=== PATIENT | male | born 1995 | race Caucasian/White ===

== ENCOUNTER 2017-02-27 10:56 | Emergency (ER) | payer OTHER ==
[2017-02-27] MEDS ORDERED: IOPAMIDOL 300 (61%) 100 ML VIAL IV ONE (10:57)
[2017-02-27 11:23] LABS: PH,URINE 6.5 (5.0-8.0); SPECIFIC GRAVITY 1.015 (1.001-1.030); URINE BILIRUBIN NEGATIVE (NEGATIVE); URINE BLOOD NEGATIVE (NEGATIVE); URINE GLUCOSE (UA) NEGATIVE (NEGATIVE); URINE LEUKOCYTE ESTERASE NEGATIVE (NEGATIVE); URINE NITRITE NEGATIVE (NEGATIVE); URINE PROTEIN TRACE (NEGATIVE); URINE UROBILINOGEN 1 mg/dL (0-1 mg/dl)
[2017-02-27 11:25] LABS: URINE APPEARANCE CLEAR; URINE COLOR YELLOW
[2017-02-27 11:31] LABS: ABSOLUTE NEUTROPHIL COUNT 6.1 K/mm3 (1.8-7.7); BASO # 0.1 K/mm3 (0.0-0.2); BASO % 0.6 % (0.2-1.0); EOS # 0.7 (0.0-0.5); EOS % 7.5 % (0.9-2.9); HEMOGLOBIN 16.2 gm/l (14.0-18.0); IMM NEUT # 0.1 K/mm3 (0-0.2); IMM NEUT% 0.5 % (0-1); LYMPH # 2.1 (1.0-4.8); LYMPH % 21.6 % (15-45); MEAN CELL VOLUME 85.3 fl (80.0-94.0); MEAN CORPUSCULAR HEMOGLOBIN 28.8 pg (27.0-31.0); MEAN CORPUSCULAR HGB CONC 33.8 g/dl (33.0-37.0); MONO # 0.6 (0.0-0.8); MONO % 6.1 % (4-12); NEUT % 63.7 % (43-75); PLATELET COUNT 195 K/mm3 (130-400); RED CELL DISTRIBUTION WIDTH 12.6 % (11.5-14.5)
[2017-02-27 11:51] LABS: ALB/GLOB RATIO 1.7 (>1.0); ALBUMIN 4.5 gm/dL (3.5-5.7); CALCIUM 9.5 mg/dL (8.6-10.3)
[2017-02-27] MEDS ORDERED: KETOROLAC TROMETHAMINE 15 MG/ML VIAL ONE (12:10)
--- NOTE | 2017-02-27 13:58 | CT ---
EXAMINATION: Contrast enhanced CT scan of the abdomen and pelvis. CLINICAL INDICATION: Left flank pain. Vomiting COMPARISON: None TECHNIQUE: Oral contrast: None Following uneventful administration of 100 mL of Isovue 300, intravenously axial images were acquired from just above the domes of the diaphragm to the iliac crest. A CT scan of the pelvis was also obtained from the iliac crest to the initial tuberosities. Stacked axial, sagittal, and coronal images were reviewed. Findings: Abdomen CT: (Contrast-enhanced): The lung bases are clear and are without mass or pleural effusion. The liver is unremarkable. The gallbladder is within normal limits. There is no evidence of biliary obstruction. The spleen size and attenuation are within normal limits. The pancreas is normal in size and contours. No inflammatory stranding is identified. The pancreatic duct is unremarkable. The adrenals are unremarkable. The kidneys are without mass or hydronephrosis. No nephrolithiasis is identified. The abdominal aorta unremarkable. There is no retroperitoneal adenopathy identified. The stomach is unremarkable. The visualized segments of small and large bowel are within normal limits. The osseous structures exhibit no displaced fracture. No lytic or blastic lesions are identified. Pelvic CT: (Contrast -enhanced): The distal ureters and bladder are unremarkable. The prostate is normal in size. No adenopathy is identified. The distal abdominal aorta and iliac vessels are within normal limits. The visualized segments of small and large bowel are within normal limits. The appendix is unremarkable. No displaced fractures are identified. There are no gross osteolytic or blastic lesions. The overlying soft tissues are unremarkable. IMPRESSION: No acute inflammatory or obstructive process is identified within the abdomen or pelvis. Findings were discussed with Dr. Schrader at 1:52 PM 02/27/2017
== END 2017-02-27 14:56 | disposition home or self-care (01) ==
LOC: ED 10:56
DX: R10.9 Unspecified abdominal pain (principal)